=== PATIENT | female | born 1955 | race Caucasian/White ===

== ENCOUNTER 2019-07-22 09:18 | Emergency (ER) | payer OTHER ==
[2019-07-22] MEDS ORDERED: Ketorolac 60 MG/2 ML SDV IM ONE (10:02)
--- NOTE | 2019-07-22 10:05 | EDM.PDOC ---
ED HPI GENERAL MEDICAL PROBLEM - General Chief Complaint: Lower Extremity Injury/Pain Stated Complaint: LT LEFT PAIN Time Seen by Provider: 07/22/19 09:55 Source of Information: Reports: Patient History Limitations: Reports: No Limitations - History of Present Illness INITIAL COMMENTS - FREE TEXT/NARRATIVE: 64-year-old female turned her ankle this morning while packing to go home, and partially fell while twisting the lower extremity on the left side sustaining an injury. She now has fairly significant swelling around the ankle, and pain radiating up the lateral aspect of the left leg. Weightbearing is painful. No other injury. Onset: Sudden Duration: Hour(s): (2 hours ago) Location: Reports: Lower Extremity, Left Associated Symptoms: Reports: No Other Symptoms Left Ankle Pain Score (Numeric/FACES): 8 - Related Data Allergies Allergy/AdvReac Type Severity Reaction Status Date / Time trazodone Allergy Lethargy Verified 07/22/19 09:41 Home Meds: Home Meds Gabapentin [Neurontin] 600 mg PO BEDTIME 07/22/19 [History] [place] Carbonate 150 mg PO BEDTIME 07/22/19 [History] lamoTRIgine [Lamictal] 300 mg PO BEDTIME 07/22/19 [History] Past Medical History Musculoskeletal History: Reports: Fracture Psychiatric History: Reports: Anxiety, Bipolar - Past Surgical History Respiratory Surgical History: Reports: Lung Resection Social & Family History - Tobacco Use Smoking Status *Q: Never Smoker Second Hand Smoke Exposure: No - Caffeine Use Caffeine Use: Reports: Soda - Recreational Drug Use Recreational Drug Use: No Review of Systems - Review of Systems Review Of Systems: See Below Constitutional: Denies: Fever Respiratory: Denies: Shortness of Breath Cardiovascular: Denies: Chest Pain Musculoskeletal: Reports: Leg Pain Skin: Denies: Bruising Neurological: Reports: No Symptoms, Paresthesia (Feels like there is some numbness in the lower left leg) Psychiatric: Reports: Other (Bipolar disorder, also a history of chemical dependency) ED EXAM, GENERAL - Physical Exam Exam: See Below Exam Limited By: No Limitations General Appearance: Alert, Other (Looks fairly uncomfortable but not distressed) Head: Atraumatic Respiratory/Chest: No Respiratory Distress Extremities: Other (Patient has a significant swelling and tenderness to palpation over the medial and lateral malleolus. There is also tenderness over the proximal fibula of the left leg.) Psychiatric: Flat Affect Skin Exam: Warm, Dry Course - Vital Signs Last Recorded V/S: Last Vital Signs Temp 98.1 F 07/22/19 09:52 Pulse 68 07/22/19 09:52 Resp 18 07/22/19 09:52 BP 164/71 H 07/22/19 09:52 Pulse Ox 98 07/22/19 09:52 - Orders/Labs/Meds Orders: Active Orders 24 hr Category Date Time Status Ankle Min 3V Lt [CR] Stat Exams 07/22/19 10:01 Taken Tibia Fibula Lt [CR] Stat Exams 07/22/19 10:01 Taken DME for Discharge [COMM] Stat Oth 07/22/19 10:46 Ordered Meds: Medications Discontinued Medications Generic Name Dose Route Start Last Admin Trade Name Arabella PRN Reason Stop Dose Admin Ketorolac Tromethamine 60 mg 07/22/19 10:02 07/22/19 10:08 Toradol IM 07/22/19 10:03 60 mg ONETIME ONE Administration - Re-Assessments/Exams Free Text/Narrative Re-Assessment/Exam: 07/22/19 10:05 Patient was given 60 mg of IM Toradol, followed by a left ankle and left tib- fib x-ray. 07/22/19 10:43 X-ray does confirm a displaced medial malleoli are fracture that extends into the posterior malleolus. She also has a slightly displaced proximal fibular fracture. She was placed in a knee cam walker, but was told to not bear weight and use crutches for ambulation. 10 additional doses of Toradol was given to take every 6 hours. We were unable to put her in a long-leg splint because she would not of been able to travel and the wanted to try to get her home to [place]. They will recheck on Wednesday when home. Departure - Departure Time of Disposition: 11:28 Disposition: Home, Self-Care 01 Clinical Impression: Left tibial fracture Qualifiers: Encounter type: initial encounter Tibia location: medial malleolus Fracture type: closed Fracture alignment: displaced Qualified Code(s): S82.52XA - Displaced fracture of medial malleolus of left tibia, initial encounter for closed fracture Fibular upper end fracture Qualifiers: Encounter type: initial encounter Fracture type: closed - Discharge Information Instructions: Tibial Fracture, Adult Referrals: PCP,None [Primary Care Provider] - Forms: ED Department Discharge Care Plan Goals: Keep boot on until recheck with orthopedics on Wednesday. Take x-ray to your recheck appointment. Elevate injured leg if possible, and take 1 pain pill every 6 hours. Use crutches, and try to bear no weight on your injured foot. Sepsis Event Note - Evaluation Sepsis Screening Result: No Definite Risk - Focused Exam Vital Signs: Vital Signs Temp Pulse Resp BP Pulse Ox 07/22/19 09:52 98.1 F 68 18 164/71 H 98 Date Exam was Performed: 07/22/19 Time Exam was Performed: 14:03 - My Orders Last 24 Hours: My Active Orders 07/22/19 10:01 Ankle Min 3V Lt [CR] Stat Tibia Fibula Lt [CR] Stat 07/22/19 10:46 DME for Discharge [COMM] Stat - Assessment/Plan Last 24 Hours: My Active Orders 07/22/19 10:01 Ankle Min 3V Lt [CR] Stat Tibia Fibula Lt [CR] Stat 07/22/19 10:46 DME for Discharge [COMM] Stat
--- NOTE | 2019-07-24 09:13 | CR ---
Ankle Min 3V Lt, Tibia Fibula Lt CLINICAL HISTORY: Injury FINDINGS: The soft tissues are moderately swollen. There is a fracture through the medial malleolus. There is also avulsion fragments anterior medial to the distal tibia. There is a coronal plane fracture through the posterior tibia into the articular surface. There is subluxation at the distal tibial fibular articulation. There is asymmetry the ankle mortise. Impression: Comminuted fracture dislocation at the distal fibula with tib-fib subluxation Avulsion fragments medial to the distal tibial metaphysis likely at ligamentous insertions. There is also fracture fragment anterior to the tibiotalar joint Ankle Min 3V Lt, Tibia Fibula Lt CLINICAL HISTORY: Injury FINDINGS: There is a minimally displaced fracture of the proximal fibula. There are ossific densities in the posterior lateral calf. This may represent some myositis from older injury. IMPRESSION: Fractures of the distal tibia and proximal fibula Soft tissue calcification or ossification in the upper third of the posterior lateral calf muscles
== END 2019-07-22 11:28 | disposition home or self-care (01) ==
LOC: JP.ED 09:18
DX: S82.52XA Displaced fracture of medial malleolus of left tibia, initial encounter for closed fracture (principal); S82.832A Other fracture of upper and lower end of left fibula, initial encounter for closed fracture; F31.9 Bipolar disorder, unspecified; F41.9 Anxiety disorder, unspecified; Z88.8 Allergy status to other drugs, medicaments and biological substances; Z79.899 Other long term (current) drug therapy; X50.1XXA Overexertion from prolonged static or awkward postures, initial encounter
CPT/HCPCS: 73590; 73610; 96372; 99283; J1885